=== PATIENT | female | born 1995 ===

== ENCOUNTER 2018-12-23 20:28 | Emergency (ER) | payer OTHER ==
[2018-12-23 20:39] VITALS: BP 110/60
--- NOTE | 2018-12-23 21:32 | UC ---
Hand/Wrist HPI - HPI Summary HPI Summary: 23-year-old female presents with complaints of left middle finger pain. States she accidentally jammed the finger around 7 PM this evening while rock climbing. Reports pain and swelling to the PIP of the left middle finger. States range of motion is limited due to the swelling. Denies any numbness or tingling. - History Of Current Complaint Chief Complaint: UCUpperExtremity Stated Complaint: FINGER INJURY Time Seen by Provider: 12/23/18 20:47 Hx Obtained From: Patient Hx Last Menstrual Period: currently Pain Intensity: 2 - Allergies/Home Medications Allergies/Adverse Reactions: Allergies Allergy/AdvReac Type Severity Reaction Status Date / Time No Known Allergies Allergy Verified 12/23/18 20:39 Home Medications: Home Medications NK [No Home Medications Reported] 12/23/18 [History Confirmed 12/23/18] PMH/Surg Hx/FS Hx/Imm Hx Previously Healthy: Yes - Denies significant PMH - Surgical History Surgical History: None - Family History Known Family History: Positive: Non-Contributory - Social History Occupation: Student Lives: Dormitory/Roommates Alcohol Use: Occasionally Substance Use Type: None Smoking Status (MU): Never Smoked Tobacco Review of Systems All Other Systems Reviewed And Are Negative: Yes Constitutional: Positive: Negative Skin: Negative: Bruising Respiratory: Positive: Negative Cardiovascular: Positive: Negative Gastrointestinal: Positive: Negative Genitourinary: Positive: Negative Motor: Negative: Weakness Neurovascular: Negative: Decreased Sensation Musculoskeletal: Positive: Other: - See HPI Neurological: Positive: Negative Is Patient Immunocompromised?: No Physical Exam - Summary Physical Exam Summary: GENERAL APPEARANCE: Well developed, well nourished, alert and cooperative, and appears to be in no acute distress. CARDIAC: Normal S1 and S2. No S3, S4 or murmurs. Rhythm is regular. There is no peripheral edema, cyanosis or pallor. Extremities are warm and well perfused. Capillary refill is less than 2 seconds. Peripheral pulses intact. LUNGS: Clear to auscultation without rales, rhonchi, wheezing or diminished breath sounds. ABDOMEN: Positive bowel sounds. Soft, nondistended, nontender. No guarding or rebound. No masses or hepatosplenomegally. MUSKULOSKELETAL: Normal muscular development. Normal gait. EXTREMITIES: Tenderness at the PIP with mild edema. No erythema, ecchymosis, or gross deformity is noted. Mild decrease in both flexion and extension due to the swelling. Circulation and sensation intact distally. SKIN: Skin normal color, texture and turgor with no lesions or eruptions. Triage Information Reviewed: Yes Vital Signs: Initial Vital Signs Temp 98.4 F 12/23/18 20:33 Pulse 65 12/23/18 20:33 Resp 18 12/23/18 20:33 BP 110/60 12/23/18 20:33 Pulse Ox 100 12/23/18 20:33 Vital Signs Reviewed: Yes Hand/Wrist Course/Dx - Course Course Of Treatment: 23-year-old female presents with complaints of left middle finger pain. States she accidentally jammed the finger around 7 PM this evening while rock climbing. Reports pain and swelling to the PIP of the left middle finger. States range of motion is limited due to the swelling. Denies any numbness or tingling. Afebrile. Vital signs stable. Exam was remarkable for some tenderness at the PIP with mild edema. No erythema, ecchymosis, or gross deformity is noted. Mild decrease in both flexion and extension due to the swelling. Circulation and sensation intact distally. No acute fracture or dislocation was seen on the preliminary reading of her x-ray. Patient was placed in a finger splint and recommended conservative treatment for a finger sprain. She is to follow-up with orthopedic surgery in 7 days if symptoms do not improve. Anticipatory guidance and warning symptoms are reviewed with the patient. Verbalizes understanding and agrees with plan of care. - Differential Dx/Diagnosis Differential Diagnosis/HQI/PQRI: Contusion, Fracture, Sprain Provider Diagnosis: Sprain of left middle finger Discharge - Sign-Out/Discharge Documenting (check all that apply): Patient Departure All imaging exams completed and their final reports reviewed: No - Discharge Plan Condition: Stable Disposition: HOME Patient Education Materials: Finger Sprain (ED) Referrals: No Primary Care Phys,NOPCP [Primary Care Provider] - Nannette Willingham MD [Medical Doctor] - 7 Days (If no improvement in symptom. Call for appointment.) Additional Instructions: The x-ray performed in the clinic tonight showed no evidence of fracture. I suspect that you have a sprain of the finger. The x-ray will be reviewed by the radiologist tomorrow and we will contact you if they see anything that would change the plan of care. Rest the finger as much as possible. You should wear the splint for the next several days until you are pain-free. Apply ice to the affected area for 15-20 minutes at least 4 times a day to help with pain and swelling. Keep the hand elevated at the level of your heart to help reduce swelling. Take acetaminophen (Tylenol) or ibuprofen (Advil, Motrin) according to directions as needed for pain. Follow up with orthopedic surgery in 7 days if there is no improvement in your symptoms. Call for an appointment. Seek immediate medical attention in the emergency room if you have severe pain that is not managed with pain medication, the finger becomes cool to the touch compared to your other fingers, you develop numbness or tingling in the finger, or have any worsening of symptoms. - Billing Disposition and Condition Condition: STABLE Disposition: Home
--- NOTE | 2018-12-24 07:14 | UC ---
- Progress Note Progress Note: Called and left patient a message to call back. When she calls back she needs to see someone from [facility] orthopedic hand this week at [phone] for fracture of her middle finger. - EKG/XRAY/CT XRAY: left middler finger - question of a nondisplaced fracture of dorsal bone of middle phalanx Course/Dx - Diagnoses Provider Diagnoses: Sprain of left middle finger Discharge - Sign-Out/Discharge Documenting (check all that apply): Post-Discharge Follow Up All imaging exams completed and their final reports reviewed: Yes - Discharge Plan Condition: Stable Disposition: HOME Patient Education Materials: Finger Sprain (ED) Referrals: Nannette Willingham MD [Medical Doctor] - 7 Days (If no improvement in symptom. Call for appointment.) No Primary Care Phys,NOPCP [Primary Care Provider] - Additional Instructions: The x-ray performed in the clinic tonight showed no evidence of fracture. I suspect that you have a sprain of the finger. The x-ray will be reviewed by the radiologist tomorrow and we will contact you if they see anything that would change the plan of care. Rest the finger as much as possible. You should wear the splint for the next several days until you are pain-free. Apply ice to the affected area for 15-20 minutes at least 4 times a day to help with pain and swelling. Keep the hand elevated at the level of your heart to help reduce swelling. Take acetaminophen (Tylenol) or ibuprofen (Advil, Motrin) according to directions as needed for pain. Follow up with orthopedic surgery in 7 days if there is no improvement in your symptoms. Call for an appointment. Seek immediate medical attention in the emergency room if you have severe pain that is not managed with pain medication, the finger becomes cool to the touch compared to your other fingers, you develop numbness or tingling in the finger, or have any worsening of symptoms. - Billing Disposition and Condition Condition: STABLE Disposition: Home
== END 2018-12-23 21:35 | disposition home or self-care (01) ==
LOC: UCEAST 20:28
DX: S63.613A Unspecified sprain of left middle finger, initial encounter (principal); W23.0XXA Caught, crushed, jammed, or pinched between moving objects, initial encounter; Y93.31 Activity, mountain climbing, rock climbing and wall climbing
CPT/HCPCS: 73140; 99201; G0463